=== PATIENT | male | born 1990 | race Caucasian/White ===

== ENCOUNTER 2023-09-17 22:12 | Emergency (ER) | payer MEDICARE, MEDICAID ==
[2023-09-17] MEDS: LORazepam 2 MG/ML SDV IVPUSH ONE (22:27)
[2023-09-17] MEDS: LORazepam 2 MG/ML SDV ONE (22:33)
[2023-09-17 22:52] LABS: EOSINOPHILS ABSOLUTE AUTO 0.33 10^3/uL (0.10-0.30); EOSINOPHILS PERCENT AUTO 3.4 % (1.0-3.0); HEMATOCRIT 48.8 % (40.0-52.0); HEMOGLOBIN 15.8 g/dL (13.0-17.0); IMMATURE GRAN ABSOLUTE AUTO 0.03 10^3/uL (0.00-0.50); IMMATURE GRAN PERCENT AUTO 0.3 % (0.0-5.0); LYMPHOCYTES ABSOLUTE AUTO 3.45 10^3/uL (1.00-4.00); LYMPHOCYTES PERCENT AUTO 35.3 % (20.0-40.0); MEAN CORPUSCULAR HEMOGLOBIN 27.9 pg (27.0-31.0); MEAN CORPUSCULAR HGB CONC 32.4 g/dL (32.0-36.0); MEAN CORPUSCULAR VOLUME 86.1 fL (82.0-92.0); MEAN PLATELET VOLUME 10.1 fL (7.4-10.4); MONOCYTES ABSOLUTE AUTO 1.16 10^3/uL (0.10-0.80); MONOCYTES PERCENT AUTO 11.9 % (2.0-8.0); NEUTROPHILS ABSOLUTE AUTO 4.71 10^3/uL (2.50-7.00); NEUTROPHILS PERCENT AUTO 48.1 % (50.0-70.0); PLATELET COUNT,PLT 210 10^3/uL (150-400); RED BLOOD CELL COUNT 5.67 10^6/uL (4.50-6.00); RED CELL DISTRIBUTION WIDTH 12.1 % (11.5-14.5); WHITE BLOOD CELL COUNT,WBC 9.78 10^3/uL (5.00-10.00)
[2023-09-17 23:07] LABS: ALBUMIN 4.13 g/dL (3.40-5.00); ANION GAP 21.9 mmol/L (5-15); BILIRUBIN TOTAL 0.3 mg/dL (0.2-1.0); CALCIUM 9.4 mg/dL (8.7-10.3); CARBON DIOXIDE,CO2 23.8 mmol/L (21.0-32.0); CREATININE 0.94 mg/dL (0.51-1.17); EST CRCL DRUG DOSING (CG) 118.71 mL/min; POTASSIUM,K 2.7 mmol/L (3.5-5.1); PROTEIN TOTAL,TP 8.6 g/dL (6.4-8.2)
[2023-09-17] MEDS: levETIRAcetam in NaCl (iso-os) 400 ML ONE (23:36)
[2023-09-17] MEDS: levETIRAcetam in NaCl (iso-os) 500 MG in Premix Bag 1 BAG IV ONE ×2 (23:37→23:54)
[2023-09-18] MEDS: levETIRAcetam in NaCl (iso-os) 500 MG in Premix Bag 1 BAG IV ONE ×2 (00:07→00:25)
[2023-09-18] MEDS: Sodium Chloride 0.9% 100 ML ONE (00:37)
[2023-09-18] MEDS: Sodium Chloride 0.9% 100 ML IV SCH (00:38)
== END 2023-09-18 01:15 | disposition home or self-care (01) ==
LOC: KA.ED 22:12
DX: G40.909 Epilepsy, unspecified, not intractable, without status epilepticus (principal); Z91.048 Other nonmedicinal substance allergy status
CPT/HCPCS: 80053; 80177; 85025; 96365; 96375; 96376; 99284-25; J1953; J2060; J3490